=== PATIENT | female | born 1955 | race Caucasian/White ===

== ENCOUNTER → 2016-12-27 | Outpatient (CLI) | payer OTHER ==
[~2016-12-27] MED LIST: AZITTAB PO; BND25X PO; HYCUDL5 PO; NYQUIL
[2016-12-27 16:28] LABS: BASO % 0.5 %; BASO ABS # 0.04 K/uL (0-0.2); COMPLETE YES; EOS % 3.4 %; HEMATOCRIT 44.6 % (37-47); IG% 0.1 %; LYMPH % 28.2 %; LYMPH ABS # 2.05 K/uL (1.2-3.4); MEAN CELL VOLUME 88.7 fL (80-100); MEAN CORPUSCULAR HEMOGLOBIN 30.6 pg (25-34); MEAN CORPUSCULAR HGB CONC 34.5 g/dl (32-36); MEAN PLATELET VOLUME 10.7 fL (7.4-10.4); MONO % 10.2 %; NEUT % 57.6 %; PLATELET COUNT 189 K/uL (130-400); RED BLOOD COUNT 5.03 M/uL (4.2-5.4); WHITE BLOOD COUNT 7.28 K/uL (4.8-10.8)
[2016-12-27 16:30] LABS: BLOOD UREA NITROGEN 19 mg/dl (7-18); CALCIUM 8.4 mg/dl (8.5-10.1); CARBON DIOXIDE 27 mmol/L (21-32); CHLORIDE 107 mmol/L (98-107); CREATININE 0.92 mg/dl (0.60-1.20); GLUCOSE 88 mg/dl (70-99); POTASSIUM 4.7 mmol/L (3.5-5.1); SODIUM 142 mmol/L (136-145)
[2016-12-27 16:41] LABS: ALB/GLOB RATIO 1.2 (0.9-2); ALKALINE PHOSPHATASE 92 U/L (45-117); ALT/SGPT 51 U/L (12-78); AST/SGOT 31 U/L (15-37)
== END | disposition home or self-care (01) ==
LOC: C.LABSPEC 15:55
PROVIDERS: ATTEND Family Medicine
DX: R07.9 Chest pain, unspecified (principal)

== ENCOUNTER → 2017-01-05 | Outpatient (CLI) | payer OTHER ==
--- NOTE | 2017-01-06 17:41 | EXERCISE STRESS ECHO ---
*NOTICE TO RECEIVING [employer] This information is strictly Confidential and protected under [place] law. [place] law prohibits you from making any further disclosure of this information unless further disclosure is expressly permitted by the written consent of the person to whom it pertains or is authorized by law. A general authorization for the release of medical or other information is not sufficient for this purpose. Hospital accepts no responsibility if the information is made available to any other person, INCLUDING THE PATIENT. Interpretation Summary * Name: CHAVA MITTAL Study Date: 01/05/2017 12:01 PM BP: 117/66 mmHg * Patient Location: [facility] HR: 88 * : 1955 (M/d/yyyy) Gender: Female Height: 62 in * Age: 61 yrs Ethnicity: [place] Weight: 144 lb * Ordering Physician: Isaias Martinez * Referring Physician: Isaias Martinez * Performed By: Carolyne Anglin * * Reason For Study: CHEST PAIN, DIZZINESS * BSA: 1.7 m2 * -- Conclusions -- * Left ventricular systolic function is normal. * Grade I diastolic dysfunction, (abnormal relaxation pattern). * Moderate aortic regurgitation. * There is mild mitral regurgitation. * Diagnostic exercise echocardiogram which is negative for inducible ischemia * Hypertensive response to exercise. Procedure Details * ECHOEX, CPT #[id number] * ECHO DOPPLER, CPT #[id number] * ECHO COLOR FLOW, CPT #[id number] Left Ventricular Findings with Stress * Diagnostic exercise echocardiogram which is negative for inducible ischemia Hypertensive response to exercise. Left Ventricle * The left ventricle is normal in size. * There is normal left ventricular wall thickness. * Ejection Fraction = 55-60%. * Left ventricular systolic function is normal. * Grade I diastolic dysfunction, (abnormal relaxation pattern). * The left ventricular wall motion is normal. Right Ventricle * The right ventricle is normal in size and function. Atria * The left atrial size is normal. * Right atrial size is normal. Mitral Valve * The mitral valve anatomy is normal. * There is mild mitral regurgitation. * The mitral regurgitant jet is eccentrically directed. * The mitral regurgitant jet is posteriorly directed, which is consistent with anterior leaflet pathology. Tricuspid Valve * The tricuspid valve is not well visualized, but is grossly normal. * There is mild tricuspid regurgitation. * Right ventricular systolic pressure is normal. Aortic Valve * The aortic valve is trileaflet. * No hemodynamically significant valvular aortic stenosis. * Moderate aortic regurgitation. Pericardium * There is no pericardial effusion. Stress Parameters * Normal baseline electrocardiogram. * Stress ECG: No ST changes. No arrhythmias. * The stress portion of this study was personally supervised by the undersigned interpreting physician. * Rest heart rate was '88' BPM. * Rest blood pressure was '117/66' * Maximum heart rate achieved was 169 bpm. * Maximum heart rate was 105 % of maximum age-predicted heart rate. * Maximum blood pressure was '205/99' * Total exercise time was '7:01' * Maximum exercise MET level achieved was '8.50' METS * Maximum treadmill speed was '3.40' miles per hour. * Maximum treadmill elevation was '14.00'% grade. * Exercise was terminated due to 'fatigue' * Patient had no symptoms during exercise. Target Heart rate achieved. Left Ventricular Findings with Stress * Normal baseline EKG without significant changes during exercise. Normal baseline echocardiogram with normal augmentation and no inducible wall m otion abnormalities Normal baseline BP with hypertensive response to exercise. No symptoms during exercise Jackson treadmill score: 7 (low risk) MMode 2D Measurements and Calculations IVSd 1.1 cm IVSs 1.6 cm LVIDd 4.3 cm LVIDs 3.0 cm LVPWd 0.89 cm LVPWs 1.5 cm IVS/LVPW 1.2 FS 31.1 % EDV(Teich) 84.9 ml ESV(Teich) 34.8 ml EF(Teich) 59.1 % EDV(cubed) 81.8 ml ESV(cubed) 26.8 ml EF(cubed) 67.3 % % IVS thick 48.2 % % LVPW thick 73.5 % LV mass(C)d 141.1 grams LV mass(C)dI 84.9 grams/m\S\2 LV mass(C)s 169.8 grams LV mass(C)sI 102.1 grams/m\S\2 CO(Teich) 3.7 l/min CI(Teich) 2.2 l/min/m\S\2 SV(Teich) 50.2 ml SI(Teich) 30.2 ml/m\S\2 CO(cubed) 4.1 l/min CI(cubed) 2.4 l/min/m\S\2 SV(cubed) 55.0 ml SI(cubed) 33.1 ml/m\S\2 ACS 1.2 cm LA dimension 3.4 cm asc Aorta Diam 3.5 cm LVOT diam 2.0 cm LVOT area 3.0 cm\S\2 LVAd ap4 23.7 cm\S\2 LVLd ap4 7.1 cm EDV(MOD-sp4) 65.0 ml LVAs ap4 13.8 cm\S\2 LVLs ap4 5.9 cm ESV(MOD-sp4) 27.0 ml EF(MOD-sp4) 58.5 % LVAd ap2 24.7 cm\S\2 LVLd ap2 7.3 cm EDV(MOD-sp2) 71.0 ml LVAs ap2 14.6 cm\S\2 LVLs ap2 6.2 cm ESV(MOD-sp2) 30.0 ml EF(MOD-sp2) 57.7 % CO(MOD-sp4) 2.8 l/min CI(MOD-sp4) 1.7 l/min/m\S\2 SV(MOD-sp4) 38.0 ml SI(MOD-sp4) 22.9 ml/m\S\2 CO(MOD-sp2) 3.0 l/min CI(MOD-sp2) 1.8 l/min/m\S\2 SV(MOD-sp2) 41.0 ml SI(MOD-sp2) 24.7 ml/m\S\2 Doppler Measurements and Calculations MV E max aleks 57.2 cm/sec MV A max aleks 71.3 cm/sec MV E/A 0.80 MV dec time 0.24 sec Ao V2 max 146.8 cm/sec Ao max PG 8.6 mmHg Ao max PG (full) 6.5 mmHg LATHA(V,A) 1.5 cm\S\2 LATHA(V,D) 1.5 cm\S\2 AI max aleks 457.0 cm/sec AI max PG 83.6 mmHg AI dec slope 236.9 cm/sec\S\2 AI P1/2t 565.1 msec LV V1 max PG 2.1 mmHg LV V1 max 72.7 cm/sec MR max aleks 464.2 cm/sec MR max PG 86.2 mmHg PA V2 max 74.0 cm/sec PA max PG 2.2 mmHg PI end-d aleks 56.6 cm/sec TR max aleks 216.3 cm/sec
== END | disposition home or self-care (01) ==
LOC: C.CPL 11:08
PROVIDERS: ATTEND Family Medicine
DX: R42 Dizziness and giddiness (principal)

== ENCOUNTER → 2017-07-28 | Outpatient (CLI) | payer OTHER ==
--- NOTE | 2017-07-28 14:38 | DIAGNOSTIC IMAGING REPORT ---
ULTRASOUND PELVIC WALL NONVASCULAR CLINICAL HISTORY: Cellulitis and erythema. Clinical concern for abscess. COMPARISON STUDY: No priors FINDINGS: Real-time, grayscale, and color flow sonography of the ventral pelvic wall is performed from the right groin to the left groin. There is diffuse subcutaneous soft tissue edema in this region. No organized fluid collection is seen to suggest abscess. Packing material is noted in the suprapubic region. A prominent right inguinal lymph node measures 2.0 x 0.8 x 0.9 cm. IMPRESSION: 1. There is diffuse soft tissue thickening and edema identified involving the ventral pelvic wall, likely representing cellulitis. Clinical correlation will be required. 2. No organized fluid collection is seen suggest abscess. 3. A prominent [place] lymph node is likely reactive in nature. Electronically signed by: Shiraz Marcus M.D. 07/28/2017 2:37 PM Dictated Date/Time: 07/28/2017 2:35 PM
== END | disposition home or self-care (01) ==
LOC: C.ULTRBC 13:47
PROVIDERS: ATTEND Family Medicine
DX: L02.214 Cutaneous abscess of groin (principal)